=== PATIENT | female | born 1995 | race Caucasian/White ===

== ENCOUNTER 2016-10-17 05:20 | Inpatient (IN) | payer BC, OTHER ==
[2016-10-17 05:51] VITALS: BMI 33.5
[2016-10-17] MEDS ORDERED: Lactated Ringer's 1,000 ML IV SCH (05:51)
[2016-10-17] MEDS: Lactated Ringer's 1,000 ML IV SCH ×3 (06:00→18:21)
[2016-10-17 06:21] LABS: BASO % 0.2 % (0.0-2.0); EOS # 0.1 K/uL (0.0-0.7); EOS % 0.6 % (0.0-4.0); HEMOGLOBIN 10.2 g/dL (12.0-16.0); LYMPH # 1.9 K/uL (1.0-4.3); LYMPH % 23.2 % (20.0-40.0); MEAN CELL VOLUME 85.2 fl (81.0-99.0); MEAN CORPUSCULAR HEMOGLOBIN 28.4 pg (27.0-31.0); MEAN CORPUSCULAR HGB CONC 33.4 g/dL (33.0-37.0); MEAN PLATELET VOLUME 9.1 fl (7.2-11.7); MONO # 0.7 K/uL (0.0-0.8); MONO % 8.1 % (0.0-10.0); NEUT # 5.6 K/uL (1.8-7.0); NEUT % 67.9 % (50.0-75.0); RBC 3.58 Mil/uL (3.80-5.20); WHITE BLOOD COUNT 8.2 K/uL (4.8-10.8)
[2016-10-17] MEDS ORDERED: Oxytocin 30 units/LR 500ML 30 U/500 ML BAG IV ONE (06:43)
[2016-10-17] MEDS ORDERED: ceFAZolin 2 GM in Sodium Chloride 0.9% 100 ML IVPB ONE (07:46)
--- NOTE | 2016-10-17 08:06 | OBADHP ---
Datetime: 10/17/2016 06:08 Admit Comment, IP Provider: 21 y/o @ 39.4 weeks IUP presents for scheduled . The p atient reports positive movements and taking PNVs. The patient denies VB, LOF, CTXs, headaches , chest pain, SOB, n/v/d, dysuria, and fevers. Clinic: [facility] PMH: none allergies: NKDA PSH: none OBHx: x1 SAB SOC: denies smoking, alcohol, and drugs ABO-Rh: A+ antibody:neg HIV: neg RPR: neg HBsAg: neg rubella: immune HSV-II: positive O: CV: RRR Resp: CTA bl A: 21 y/o @ 39.4 weeks IUP presents for scheduled P: admit to unit initiate protocol continuous monitoring IV LR bolus IV LR @ 125 mL/hr CBC w/ diff ordered type and screen ordered anticipate Deo Nobles MD Vest Backer OB Hospitalist: 21 yo at 39+5 wks admitted for scheduled section per maternal req uest d/t h/o herpes. Pt counseled that the recommendation for herpes is to be on suppression from 36 weeks and have a c/s if she has herpes lesions present at the time of labor or ruptured membranes. I explained that section is major surgery and that it is safer for her and the baby to have a vaginal delivery. I also explained that she is at risk for abnormal placentation w/ having multipl e sections in the future. Pt still wanted to proceed w/ c/s after being counseled. Consents for surgery and blood signed. (ES) Pelvic Type - PN: Not Done Extremities - PN: Not Done Abdomen - PN: Normal Back - PN: Normal Breast - PN: Not Done Lungs - PN: Normal Heart - PN: Normal Thyroid - PN: Not Done Neurologic - PN: Not Done HEENT - PN: Normal General - PN: Normal FHR - Baseline A Provider: 130 IP Hx Assessment: The History has been Reviewed and is Current Vital Signs Provider: Reviewed; Within Normal Limits IP Chief Complaint: Scheduled Section NICHD Variability Prov Fetus A: Moderate 6-25bpm NICHD Accel Fetus A IP Provider: [id number] FHR Category Provider Fetus A: Category I NICHD Decel Fetus A IP Provider: None Genitourinary Exam: Normal DTRs - PN: Not Done EGA AdmitDate IP: 39.4 IP Adm Impression: Term, intrauterine IP Admit Plan: Admit to unit; Initiate Section protocol
[2016-10-17] MEDS ORDERED: Phenylephrine 10 mg/ml Inj ONE (08:31)
[2016-10-17] MEDS ORDERED: Morphine 5 mg/10 ml preservative-free Inj(Duramorph) ONE (08:47)
[2016-10-17] MEDS ORDERED: Naloxone 0.4 mg/ml Inj (Adult) IVP PRN ×2 (09:38→13:14)
[2016-10-17] MEDS ORDERED: DiphenhydrAMINE 50 mg/ml Inj IVP PRN ×2 (09:38→13:14)
[2016-10-17] MEDS ORDERED: Oxytocin 30 units/LR 500ML 30 U/500 ML BAG IV SCH ×2 (10:16→13:14)
[2016-10-17] MEDS ORDERED: Oxycodone/Acetaminophen 5/325 mg Tab PO PRN (10:16)
--- NOTE | 2016-10-17 10:34 | OBDS ---
DELIVERY PERSONNEL Delivery Doctor: Lucas Baker MD/Lorraine Hoop Machine Operator: William Cox RN/Cassi Anesthesiologist: Markos Melo MD MATERNAL INFORMATION Delivery Anesthesia: Spinal Medications in Delivery: Pitocin 30u/500LR Placenta Cultured: No Provider Comments: Pre-op dx: 21 yo at 39+5 wks admitted for section per maternal r equest for h/o genital herpes Post- op dx: Same Procedure: Primary section Surgeon: Samuel Test Worker: Dr. Cynthia Winston Ansthesia: Spinal Anesthesiologist: Dr. Melo Findings: Viable female delivered through clear fluid at 09:26 am. Apgars 9 and 9. Wt 7#3, 3260g ms. Nl appearing uterus, tubes, and ovaries. Complications: None EBL 900 mL LABOR SUMMARY EDC: 10/20/2016 00:00 No. Babies in Womb: 1 LABOR INFORMATION Group B Beta Strep: unknown STAGES OF LABOR Stage 3 hrs: 0 Stage 3 min: 0 CSECTION DELIVERY Primary Indication: elective CSection Urgency: Elective CSection Incidence: Primary Labor: No Labor Elective: Elective CSection Incision: Lower Uterine Transverse BABY A INFORMATION Delivery Date/Time: 10/17/2016 09:26 Method of Delivery: Born in Route : No : N/A Forceps: N/A Vacuum Extraction: N/A Shoulder Dystocia : No SHOULDER DYSTOCIA BABY A Delivery Date/Time: 10/17/2016 09:26 PRESENTATION/POSITION BABY A Presentation: Cephalic PLACENTA INFORMATION BABY A Placenta Delivery Time : 10/17/2016 09:26 Placenta Method of Delivery: Manual Removal Placenta Status: Delivered SCORES BABY A Heart Rate 1 min: >100 bpm Resp Effort 1 min: Good Cry Reflex Irritability 1 min: Cough or Sneeze or Pulls Away Muscle Tone 1 min: Active Motion Color 1 min: Body [place], Extremities Blue SCORE 1 MIN: 9 Heart Rate 5 min: >100 bpm Resp Effort 5 min: Good Cry Reflex Irritability 5 min: Cough or Sneeze or Pulls Away Muscle Tone 5 min: Active Motion Color 5 min: Body [place], Extremities Blue SCORE 5 MIN: 9 INFANT INFORMATION BABY A Gestational Age at Delivery: 39.4 Gestational Status: Term Outcome : Liveborn Infant Condition : Stable Infant Sex: Female IDENTIFICATION/MEDS BABY A ID Band Number: [id number] WEIGHT/LENGTH BABY A Infant Birthweight (gms): 3260 Weight (lb): 7 Weight (oz): 3 CORD INFORMATION BABY A No. Cord Vessels: 3 Nuchal Cord : N/A Infant Suction: Mouth; Nose ASSESSMENT BABY A Complications: None Physical Findings at Delivery: Within Normal Limits Infant Respirations: Appears Normal Dragline Engineer/ALS Called : No Infant Care By: Transferred To: Nursery
[2016-10-17 15:41] VITALS: BP 131/70; PULSE 92; RESP 20; TEMP 97.7; O2SAT 97
[2016-10-17] MEDS ORDERED: Simethicone 80 mg Chewtab PO SCH (16:00)
[2016-10-17] MEDS: Simethicone 80 mg Chewtab PO SCH ×2 (16:46→22:04)
[2016-10-18] MEDS: Lactated Ringer's 1,000 ML IV SCH (04:26)
[2016-10-18] MEDS: Oxycodone/Acetaminophen 5/325 mg Tab PO PRN (06:10)
[2016-10-18 07:27] LABS: BASO % 0.2 % (0.0-2.0); EOS % 0.2 % (0.0-4.0); HEMOGLOBIN 9.7 g/dL (12.0-16.0); LYMPH # 0.9 K/uL (1.0-4.3); LYMPH % 10.3 % (20.0-40.0); MEAN CELL VOLUME 84.7 fl (81.0-99.0); MEAN CORPUSCULAR HEMOGLOBIN 28.5 pg (27.0-31.0); MEAN CORPUSCULAR HGB CONC 33.7 g/dL (33.0-37.0); MONO # 0.6 K/uL (0.0-0.8); MONO % 7.3 % (0.0-10.0); NEUT # 6.9 K/uL (1.8-7.0); RBC 3.4 Mil/uL (3.80-5.20); WHITE BLOOD COUNT 8.4 K/uL (4.8-10.8)
[2016-10-18] MEDS ORDERED: Oxycodone/Acetaminophen 5/325 mg Tab PO PRN (09:39)
--- NOTE | 2016-10-18 09:42 | OBPPN ---
Datetime: 10/18/2016 05:34 PP Pain Prov: Within normal limits PP Nausea Prov: Denies PP Flatus Prov: Yes PP BM Prov: No PP Breasts Prov: Normal PP Heart Prov: Normal PP Lungs Prov: Normal PP Abdomen/Uterus Prov: Normal PP Lochia Prov: Normal PP Vulva/Perineum Prov: Not Done PP CVA Tenderness Prov: Not Done PP Extremities Prov: Not Done PP C/S Incision Prov: Normal PP Progress Prov: Normal PP Impression Prov: Normal progression PP Plan Prov: Continue present management PP Progress Note Prov: 21 y/o now seen and examined at bedside. Patient had uneventful over night. Patient reports mild pelvic pain controlled w/ pain meds. OOB/Ambulating w/o dizziness. Margarita ast/bottle feeding w/o difficulty. Tolerating PO diet well. Lochia is less than menses in volume. Voiding freely w/ no blood noted. Reports no bowel movement. Denies fevers, chills, n/v/d, CP/SOB, lightheadedness and calf pain. PE: GEN: A_O, resting comfortably in bed, NAD Lung: CTA B/L, no wheezing, rhonchi, or rales CVS: S1, S2 wnl, RRR Abd: +BS, firm fundus below umbilicus. Incision dressed, dry, clean, and intact. No induration, redness, or fluctuation EXT: no edema, negative Marquez's, calves non-tender Assessment: 21 y/o now s/p on 10/17/2016 @ 09:26 tolerating pain w/ medication, tolerating oral intake, adequate urine output, doing well on POD1. Plan: Percocet 5/325 mg 1-2 tabs PO Q6h prn for mod/severe pain. Ibuprofen 600 mg 1 tab Q6h PO pr n for mild pain. Encourage breast feeding and ambulation. Deo Nobles M.D. Reduction Furnace Operator PGY-1 [facility] ADDENDUM: pt seen _ examined by me. s: no c/o; tolerated breakfast today. planning to breastfeed p:julieta d/c advance to po meds IP PP Procedures: None Vital Signs Provider PP: Reviewed; Within Normal Limits Vital Signs Provider Details PP: hgb 9.7
[2016-10-18] MEDS: Simethicone 80 mg Chewtab PO SCH ×2 (09:43→22:05)
[2016-10-19] MEDS: Lansinoh for Breast Feeding Mothers TP PRN (01:22)
[2016-10-19] MEDS: Simethicone 80 mg Chewtab PO SCH ×5 (04:48→21:14)
[2016-10-19] MEDS: Oxycodone/Acetaminophen 5/325 mg Tab PO PRN (06:41)
--- NOTE | 2016-10-19 08:05 | OBPPN ---
Datetime: 10/19/2016 08:00 PP Nausea Prov: Denies PP Flatus Prov: Yes PP BM Prov: No PP Abdomen/Uterus Prov: Normal PP Lochia Prov: Normal PP Extremities Prov: Normal PP C/S Incision Prov: Normal PP Comments Phys Exam Prov: Incision intact PP Impression Prov: Normal progression PP Plan Prov: Continue present management PP Progress Note Prov: POD 2 s/p primary c/s, doing well, bottle feeding Continue current care Vital Signs Provider PP: Reviewed
[2016-10-20] MEDS: Oxycodone/Acetaminophen 5/325 mg Tab PO PRN (01:48)
[2016-10-20] MEDS: Simethicone 80 mg Chewtab PO SCH ×2 (04:00→09:18)
[2016-10-20] MEDS: Lansinoh for Breast Feeding Mothers TP PRN (11:41)
--- NOTE | 2016-10-20 18:03 | OBPPN ---
Datetime: 10/20/2016 08:32 PP Pain Prov: Within normal limits PP Nausea Prov: Denies PP Flatus Prov: Yes PP BM Prov: No PP Breasts Prov: Normal PP Heart Prov: Normal PP Lungs Prov: Normal PP Abdomen/Uterus Prov: Normal PP Lochia Prov: Normal PP Vulva/Perineum Prov: Normal PP CVA Tenderness Prov: Normal PP Extremities Prov: Normal PP C/S Incision Prov: Normal PP Progress Prov: Normal PP Impression Prov: Normal progression PP Plan Prov: Continue present management; Discharge PP Progress Note Prov: This is a 21 y/o, now , wasadmittedfor scheduled as per ma ternal request due to H/O herpes II. performed on 10/17/16 at 09:26 with NO complications. A baby girl was delivered with 39.5 weeks GA with a weight of 3,260 gr, 9/9. NO post-delivery c omplications. Pt and baby are feeling OK today with NO complaints. She is breast and bottle feeding h er baby with NO difficulties, pt tolerating PO and has remainedafebrile with lochialess than menses . The patient is voiding and ambulating without difficulty. Pt was able to pass gasses, NO bowel move ment reported. Pt was deemed stable for discharge on POD 3. Pt denies headache, nausea, vomitis, pel tony pain, dysuria. PE: Gen: AAO x3, resting comfortably in bed, NAD. Lungs: CTA B/L, No W/R/R. CV: RRR, S1 and S2 present. ABD: BS +, firm fundus below umbilicus. incision is clean, dry and intact. NO induration, erythema or edema. EXT: No edema, neg Marquez's sign, calves non-tender. A_P. 21 y/o S/P on 10/17/16, POD 3, tolerating pain with medications, tolerating PO, passing gases, adequate urine output and NO complications. Pt deemed for discharge today. Marlo Hirsch PGY-1 [facility] ADDENDUM: pt seen _ examined by me. s: no c/o Agree with above assessment and plan.
--- NOTE | 2016-11-03 10:00 | OP ---
Patient: Michelle Beard Surgeon: Dr. Baker Date of Procedure: 10/17/2016 Preoperative Diagnosis: 20 year old female at 39 weeks and 5 days admitted for caesarean section per maternal request for a history of genital herpes. Postoperative Diagnosis: 20 year old female at 39 weeks and 5 days admitted for caesarean section per maternal request for a history of genital herpes. Procedure: Primary low transverse section Drapery Installer: Dr. Cynthia Winston was surgical services tech and participated in the entire surgery for entire duration of the case. She helped create exposure, helped maintain hemostasis, operated throughout the case on the side of the patient that was across from her, and assisted in the delivery of the by applying fundal pressure. This case could not have been completed without her assistance. Anesthesiologist: Dr. Melo. Anesthesia: Spinal. Findings: Viable female infant delivered to clear amniotic fluid at 9:26 AM. scores were 9 and 9 at 1 and 5 minutes respectively. Weight: 7lbs, 3 oz. or 3260 gm. Normal appearing uterus, tubes, and ovaries. Complications: none Estimated blood loss: 900mL. Procedure: Patient was taken to operating room where spinal anesthesia was placed. She was then prepped and draped in the normal sterile fashion in the dorsal supine position with a left forward tilt. A time-out had been done. The spinal was tested and found to be adequate. A Pfannenstiel skin incision was made with the scalpel and carried through to the underlying layer of fascia with the Bovie. The fascia was incised in the midline and the incision was extended laterally with the Bovie over a Mira clamp. The inferior aspect of the fascial incision was grasped with the Eunice clamps, elevated, and the underlying rectus muscles were dissected off bluntly with the Bovie. Attention was then turned to the superior aspect of this incision which was in a similar fashion was grasped with the Eunice clamps, the rectus muscles were dissected off bluntly with the Bovie. The rectus muscles were then in the midline, the peritoneum was entered digitally. The peritoneum incision was extended superiorly and inferiorly with good visualization of the bladder. The bladder blade was then inserted and the vesicouterine peritoneum was identified , grasped with the pick-ups and entered sharply with the Metzenbaum scissors. The incision was then extended laterally and the bladder flap was created digitally. The bladder blade was then reinserted and the lower uterine segment was incised in a transverse fashion using the scalpel. The uterine incision was then extended digitally, the bladder blade is removed and the 's head was delivered atraumatically. The nose and mouth were suctioned with the bulb suction and the cord clamped and cut. The infant was then handed to the waiting steel shot header operator. Cord blood was collected and the placenta was then delivered as the uterus was massaged. The uterus was exteriorized and cleared of all clots and debris with a dry sponge curettage. The uterine incision was then repaired with 0 Vicryl in a running locked fashion. 0 Monocryl was then placed with an imbricating fashion for hemostasis and to reinforce the incision. Interrupted stitches of 0 Vicryl were then placed in the incision for hemostasis. The abdomen was then well irrigated, the uterus was returned to the abdomen, and the gutters was cleared of all clots and debris. The uterine incision was reexamined and found to be hemostatic. The peritoneum was then closed with a single stitch, followed by 2-0 Monocryl a single stitch was then placed to reapproximate the muscle. The fascia was then reapproximated with 4-0 Monocryl stitch in running fashion. Subcutaneous fat was well irrigated. The space of the fat was then closed with interrupted stitches of 2-0 plain gut suture. The skin was then closed in a subcuticular fashion using 4-0 Monocryl. The patient tolerated the procedure well. Sponge, lap, and needle counts were correct. The patient received Ancef prior to the procedure. The patient was taken to the recovery room in stable conditions. Shanta Baker MD
--- NOTE | 2016-11-03 12:43 | OBDCSUM ---
Datetime: 10/20/2016 08:56 Disch Instr Activity: May be up to bathroom; May be up for meals; May Shower Discharge Instructions, Provider: Routine instructions given Discharge Diagnosis, Provider: Term Delivered Disch Activity Restrictions: No exercising; No lifting; No driving; No sexual activity; Nothing in v agina - [place], tampons, douche Contraception after Delivery: Undecided
== END 2016-10-20 13:00 | disposition home or self-care (01) | DRG 766 ==
LOC: H.EROB2 05:20 → H.L&D 05:49 → H.OB/GYN 13:14
PROVIDERS: ADMIT Obstetrics & Gynecology; ATTEND Obstetrics & Gynecology
PROC: 10D00Z1 Extraction of Products of Conception, Low, Open Approach (ICD-10-PCS; principal; 2016-10-17)
PROC: 4A0HXCZ Measurement of Products of Conception, Cardiac Rate, External Approach (ICD-10-PCS; 2016-10-17)
DX: O98.32 Other infections with a predominantly sexual mode of transmission complicating childbirth (principal); A60.09 Herpesviral infection of other urogenital tract; Z3A.39 39 weeks gestation of pregnancy; Z37.0 Single live birth; Z86.19 Personal history of other infectious and parasitic diseases